=== PATIENT | female | born 1965 ===

== ENCOUNTER 2025-03-05 12:11 | Emergency (ER) | payer OTHER ==
[~2025-03-05] VITALS: Ht 162.6 cm; Wt 63.5 kg
[2025-03-05] MEDS ORDERED: CETIRIZINE HCL 5 MG/5 ML ML PO ONE (13:30)
[2025-03-05] MEDS ORDERED: BUTALB/ACETAMINOPHEN/CAFFEINE 1 TAB TABLET PO ONE ×2 (13:30→13:48)
[2025-03-05] MEDS ORDERED: CEFTRIAXONE SODIUM 1,000 MG VIAL IM ONE (13:30)
[2025-03-05] MEDS ORDERED: CETIRIZINE HCL 5MG/5ML BLIST.PACK PO ONE (13:48)
[2025-03-05] MEDS ORDERED: CEFTRIAXONE SODIUM 1,000 MG VIAL ONE (13:48)
[2025-03-05 14:56] LABS: COVID-19 AG NEGATIVE (NEGATIVE)
[2025-03-05 15:02] LABS: BASO % 1.0 % (0.1-1.2); EOS # 0.47 (0.04-0.54); EOS % 6.6 % (0.7-7.0); LYMPH # 1.80 (1.18-3.74); LYMPH % 25.4 % (19.3-53.1); MEAN PLATELET VOLUME 10.70 fl (9.4-12.4); MONO # 0.90 (0.24-0.82); NEUT # 3.83 (1.56-6.13); NEUT % 53.9 % (34.0-71.1); RED CELL DISTRIBUTION WIDTH 12.3 % (11.6-14.4)
[2025-03-05 15:04] LABS: MONO % 12.7 % (4.7-12.5)
[2025-03-05] MEDS ORDERED: PEPCID AC20 MG PO (15:23)
[2025-03-05] MEDS ORDERED: AZITHROMYCIN500 MG PO (15:23)
[2025-03-05] MEDS ORDERED: ZYRTEC10 MG PO (15:23)
== END 2025-03-05 15:40 | disposition home or self-care (01) ==
LOC: ER 12:12
PROVIDERS: General Practice
DX: J32.9 Chronic sinusitis, unspecified (principal); R51.9 Headache, unspecified; R09.81 Nasal congestion; Z20.822 Contact with and (suspected) exposure to COVID-19